=== PATIENT | female | born 1995 | race Caucasian/White ===

== ENCOUNTER 2018-07-19 11:10 | Emergency (ER) | payer OTHER ==
[~2018-07-19] VITALS: Ht 160 cm; Wt 63.7 kg
[2018-07-19 11:15] VITALS: BP 144/95
[2018-07-19] MEDS ORDERED: diphenhydrAMINE 50 MG/ML VIAL IVP ONE (11:30)
[2018-07-19] MEDS ORDERED: ONDANSETRON 4 MG/2 ML VIAL IVP ONE (11:30)
[2018-07-19] MEDS ORDERED: NACL 0.9% 1,000 ML IV ONE ×2 (11:30→13:05)
[2018-07-19 12:03] LABS: BASOPHILS % (AUTO) 0.3 % (0.0-2.0); EOSINOPHILS # (AUTO) 0.1 K/uL (0-0.4); EOSINOPHILS % (AUTO) 0.9 % (0.0-4.0); HEMATOCRIT 36.6 % (36-48); HEMOGLOBIN 11.7 g/dL (12.0-16.0); LYMPHOCYTES # (AUTO) 1.2 K/uL (2.5-16.5); LYMPHOCYTES % (AUTO) 8.7 % (20.5-51.1); MEAN CORPUSCULAR HEMOGLOBIN 27 pg (27-31); MEAN CORPUSCULAR HGB CONC 32 g/dL (33-37); MEAN CORPUSCULAR VOLUME 83.8 fL (80-94); MONOCYTES # (AUTO) 0.4 K/uL (0.8-1.0); MONOCYTES % (AUTO) 2.5 % (1.7-9.3); NEUTROPHILS # (AUTO) 12.4 K/uL (1.8-7.7); NEUTROPHILS % (AUTO) 87.6 % (42.2-75.2); PLATELET COUNT (AUTO) 264 K/uL (140-450); RED BLOOD CELL COUNT(AUTO) 4.37 MIL/uL (4.20-5.40); RED CELL DISTRIBUTION WIDTH 13.5 % (11.6-13.7); WHITE BLOOD COUNT (AUTO) 14.1 K/uL (4.5-11.0)
[2018-07-19 12:59] LABS: ALBUMIN 3.5 g/dL (3.4-5.0); CREATININE 0.7 mg/dL (0.6-1.3); TOTAL BILIRUBIN 0.2 mg/dL (0.0-1.0)
[2018-07-19] MEDS ORDERED: HALOPERIDOL IM 5 MG/ML VIAL IVP ONE (13:05)
[2018-07-19] MEDS ORDERED: CAPSAICIN 0.025% CRE 60 GM TUBE TP SCH ×2 (13:10→13:32)
[2018-07-19 14:48] VITALS: BP 122/72
== END 2018-07-19 14:47 | disposition home or self-care (01) ==
LOC: MED 11:10
DX: K31.84 Gastroparesis (principal); Z88.2 Allergy status to sulfonamides; Z88.8 Allergy status to other drugs, medicaments and biological substances; K21.9 Gastro-esophageal reflux disease without esophagitis; Z98.890 Other specified postprocedural states; F12.90 Cannabis use, unspecified, uncomplicated
CPT/HCPCS: 36415; 76705; 80053; 81002; 81025; 83690; 84702; 85025; 96361; 96374; 96375; 99284; J1200; J1630; J2405; J7030; Q0092; 99285

== ENCOUNTER 2018-07-23 02:17 | Emergency (ER) | payer OTHER ==
[~2018-07-23] VITALS: Ht 157.5 cm; Wt 65.8 kg
[2018-07-23 02:22] VITALS: BP 142/91
--- NOTE | 2018-07-23 02:22 | NUR ---
BIB EMS, pt presents to ED with epigastric abd pain 10/10 with n/v x10 days. Pt has hx of GERD, Gastritis, and Diverticulits. Pt seen x2 days at [facility]. Pt without relief at this time. VSS. ER MD aware. Positioned in bed for comfort. Continue to monitor.
--- NOTE | 2018-07-23 02:22 | NUR ---
Pt ambulated from [facility] to bed 3. Arrived via [facility]. VSS.
[2018-07-23] MEDS ORDERED: ONDANSETRON 4 MG/2 ML VIAL IVP ONE (02:30)
[2018-07-23] MEDS ORDERED: NACL 0.9% 1,000 ML IV ONE ×2 (02:30→02:35)
--- NOTE | 2018-07-23 02:30 | NUR ---
Patient being evaluated by physician at bedside.
[2018-07-23] MEDS ORDERED: PANTOPRAZOLE 40 MG INJ VIAL IVP ONE (02:35)
[2018-07-23] MEDS ORDERED: MORPHINE SULFATE 4 MG/ML SYR IVP ONE ×2 (02:35→05:10)
[2018-07-23 02:42] LABS: BASOPHILS # (AUTO) 0.1 K/uL (0.00-0.22); BASOPHILS % (AUTO) 0.5 % (0.0-2.0); EOSINOPHILS # (AUTO) 0.1 K/uL (0-0.4); HEMATOCRIT 35.4 % (36-48); HEMOGLOBIN 11.5 g/dL (12.0-16.0); LYMPHOCYTES # (AUTO) 3.9 K/uL (2.5-16.5); LYMPHOCYTES % (AUTO) 30.9 % (20.5-51.1); MEAN CORPUSCULAR HEMOGLOBIN 27 pg (27-31); MEAN CORPUSCULAR HGB CONC 33 g/dL (33-37); MEAN CORPUSCULAR VOLUME 82.4 fL (80-94); MONOCYTES # (AUTO) 1.4 K/uL (0.8-1.0); MONOCYTES % (AUTO) 11.2 % (1.7-9.3); NEUTROPHILS # (AUTO) 7.2 K/uL (1.8-7.7); NEUTROPHILS % (AUTO) 56.4 % (42.2-75.2); PLATELET COUNT (AUTO) 326 K/uL (140-450); RED BLOOD CELL COUNT(AUTO) 4.29 MIL/uL (4.20-5.40); RED CELL DISTRIBUTION WIDTH 13.6 % (11.6-13.7); WHITE BLOOD COUNT (AUTO) 12.7 K/uL (4.5-11.0)
[2018-07-23 03:07] LABS: ANION GAP 14.1 (8-16); CARBON DIOXIDE 27.2 mmol/L (21-32); POTASSIUM 3.3 mmol/L (3.5-5.1)
[2018-07-23 03:08] LABS: ALBUMIN 3.8 g/dL (3.4-5.0); CREATININE 0.8 mg/dL (0.6-1.3); TOTAL BILIRUBIN 0.5 mg/dL (0.0-1.0)
--- NOTE | 2018-07-23 04:13 | NUR ---
PT IN BED RESTING WITH EYES CLOSED. VSS. CONTINUE TO MONITOR.
[2018-07-23] MEDS ORDERED: POTASSIUM CHLORIDE 10 MEQ TABER PO ONE (04:30)
[2018-07-23] MEDS ORDERED: SIMETHICONE 40 MG/0.6 ML PO ONE (04:30)
[2018-07-23 05:32] VITALS: BP 132/76
== END 2018-07-23 05:32 | disposition home or self-care (01) ==
LOC: MED 02:17
DX: R11.2 Nausea with vomiting, unspecified (principal); R10.13 Epigastric pain; K21.9 Gastro-esophageal reflux disease without esophagitis; Z88.2 Allergy status to sulfonamides; Z88.8 Allergy status to other drugs, medicaments and biological substances
CPT/HCPCS: 36415; 80053; 83690; 85025; 96361; 96374; 96375; 96376; 99283; C9113; J2270; J2405; J7030

== ENCOUNTER 2018-07-24 07:06 | Inpatient (IN) | payer OTHER ==
[~2018-07-24] VITALS: Ht 157.5 cm; Wt 65.3 kg
[2018-07-24 07:06] VITALS: BP 144/85
--- NOTE | 2018-07-24 07:06 | NUR ---
Patient BIBA BLS, transferred to bed 11. RN evaluating patient at bedside.
--- NOTE | 2018-07-24 07:18 | NUR ---
BIBA FROM HOME WITH C/O ABD PAIN , N/V FOR 12 DAYS, SEEN BY KANDI YESTERDAY. DENIES OTHER SYMPTOMS AT THIS TIME. PAIN 04/21. SKIN IS PINK/WARM/DRY; AAOX4 WITH EVEN AND STEADY GAIT; LUNGS CLEAR BL; HR EVEN AND REGULAR; PT DENIES ANY FEVER, CP, SOB, OR COUGH AT THIS TIME; VSS; PATIENT POSITIONED FOR COMFORT; HOB ELEVATED; BEDRAILS UP X2; BED DOWN. ER MD MADE AWARE OF PT STATUS.
[2018-07-24] MEDS ORDERED: NACL 0.9% 1,000 ML IV SCH (07:23)
[2018-07-24] MEDS ORDERED: HALOPERIDOL IM 5 MG/ML VIAL IM ONE (07:25)
[2018-07-24] MEDS ORDERED: PANTOPRAZOLE 40 MG INJ VIAL IVP ONE (07:45)
[2018-07-24] MEDS ORDERED: PROMETHAZINE 25 MG/ML VIAL IM ONE (07:45)
[2018-07-24 07:53] LABS: BASOPHILS # (AUTO) 0.1 K/uL (0.00-0.22); BASOPHILS % (AUTO) 0.3 % (0.0-2.0); EOSINOPHILS # (AUTO) 0.2 K/uL (0-0.4); EOSINOPHILS % (AUTO) 0.7 % (0.0-4.0); HEMOGLOBIN 11.7 g/dL (12.0-16.0); LYMPHOCYTES # (AUTO) 1.5 K/uL (2.5-16.5); LYMPHOCYTES % (AUTO) 7.2 % (20.5-51.1); MEAN CORPUSCULAR HEMOGLOBIN 27 pg (27-31); MEAN CORPUSCULAR HGB CONC 33 g/dL (33-37); MEAN CORPUSCULAR VOLUME 82.7 fL (80-94); MONOCYTES # (AUTO) 1.4 K/uL (0.8-1.0); NEUTROPHILS # (AUTO) 17.3 K/uL (1.8-7.7); NEUTROPHILS % (AUTO) 84.8 % (42.2-75.2); PLATELET COUNT (AUTO) 312 K/uL (140-450); RED BLOOD CELL COUNT(AUTO) 4.35 MIL/uL (4.20-5.40); RED CELL DISTRIBUTION WIDTH 13.9 % (11.6-13.7); WHITE BLOOD COUNT (AUTO) 20.5 K/uL (4.5-11.0)
[2018-07-24 08:23] LABS: ALBUMIN 3.8 g/dL (3.4-5.0); ANION GAP 16.1 (8-16); CREATININE 0.7 mg/dL (0.6-1.3); POTASSIUM 3.1 mmol/L (3.5-5.1); TOTAL BILIRUBIN 0.4 mg/dL (0.0-1.0)
--- NOTE | 2018-07-24 08:45 | NUR ---
DR COOK AT BEDSIDE.
[2018-07-24] MEDS ORDERED: CAPSAICIN 0.025% CRE 60 GM TUBE TP SCH (09:10)
[2018-07-24 09:24] LABS: APPEARANCE,URINE CLEAR (CLEAR); BILIRUBIN,URINE NEGATIVE (NEGATIVE); BLOOD, URINE 1+ (NEGATIVE); COLOR,URINE YELLOW (YELLOW); LEUKOCYTE ESTERASE ,URINE NEGATIVE (NEGATIVE); NITRITE, URINE NEGATIVE (NEGATIVE); UGLUCOSE NEGATIVE (NEGATIVE)
--- NOTE | 2018-07-24 09:30 | NUR ---
TAKEN TO CT IN [facility].
--- NOTE | 2018-07-24 09:43 | NUR ---
Patient back from CT scan at this time.
[2018-07-24 09:47] LABS: RBC,URINE 0-5 (RARE) /HPF (0-5); WBC,URINE 0-5 (RARE) /HPF (0-5)
[2018-07-24] MEDS ORDERED: metroNIDAZOLE 500 MG/NS PREMIX 100 ML IV ONE (10:35)
--- NOTE | 2018-07-24 11:12 | NUR ---
PATIENT STATES 10/ PAIN, DR COOK INFORMED.
--- NOTE | 2018-07-24 11:45 | NUR ---
Patient will be admitted to care of DR GALVAN. Admited to MED SURG. Will go to room 106-A. Belongings list completed. Report to RN. PATIENT STABLE DURING TRANSPORT.
[2018-07-24 11:50] VITALS: BP 128/80
--- NOTE | 2018-07-24 11:50 | NUR ---
RECEIVED BEDSIDE REPORT FROM ED NURSE. PT ARRIVED IN THE UNIT BY WHEELCHAIR. PT AMBULATED FROM THE DOOR TO THE BED WITH STEADY GAIT. PT STABLE, AWAKE, AND ALERT. NO SIGNS OF DISTRESS NOTED. NO ACTIVE VOMITING OR NAUSEA. ORIENTED TO ROOM. CALL ANDRE WITHIN REACH. BED IN LOW POSITION. SAFETY MEASURES IN PLACE. PLAN OF CARE REVIEWED. WILL CONTINUE TO MONITOR.
[2018-07-24 11:54] LABS: BARBITURATE, URINE NEG. ng/ml (NEG <=200); BENZODIAZEPINE, URINE NEG. ng/mL (NEG <=200); CANNABINOID, URINE POS. ng/mL (NEG <=50); COCAINE, URINE NEG. ng/mL (NEG <=300); OPIATE, URINE POS. ng/mL (NEG <=2000); PHENCYCLIDINE SCREEN,URINE NEG. ng/mL (NEG <=25)
[2018-07-24] MEDS ORDERED: LEVOFLOXACIN 500 MG/D5W PREMIX 100 ML IV SCH (12:00)
[2018-07-24] MEDS: ACETAMINOPHEN 325 MG TAB PO PRN ×2 (12:35→17:33)
[2018-07-24] MEDS: LORazepam 2 MG/ML VIAL IVP PRN ×2 (12:36→23:59)
--- NOTE | 2018-07-24 12:40 | NUR ---
PT COMPLAINED OF ABD PAIN. PT CRYING, MOANING, AND RESTLESS FROM PAIN. ADMINISTERED PRN TYLENOL AND ATIVAN PER MD ORDER. PT TOLERATED WELL.
[2018-07-24] MEDS: LACTATED RINGERS 1,000 ML IV SCH ×2 (13:06→21:45)
[2018-07-24 16:00] VITALS: BP 129/59
[2018-07-24] MEDS: ONDANSETRON 4 MG/2 ML VIAL IVP PRN (17:33)
--- NOTE | 2018-07-24 17:44 | NUR ---
PT IN SEVER ABD PAIN, HOLDING ABD, CRYING, ACTIVELY VOMITING, REFUSES TYLENOL, ZOFRAN GIVEN, WILL NOTIFY .
[2018-07-24] MEDS ORDERED: MORPHINE SULFATE 4 MG/ML SYR IVP PRN (17:45)
[2018-07-24] MEDS ORDERED: MORPHINE SULFATE 4 MG/ML SYR ONE (17:58)
[2018-07-24] MEDS: metroNIDAZOLE 500 MG/NS PREMIX 100 ML IV SCH (19:12)
--- NOTE | 2018-07-24 19:30 | NUR ---
ENDORSED PT TO KEENAN MYLES. PT SLEEPING COMFORTABLY BUT EASILY AROUSABLE.
--- NOTE | 2018-07-24 19:30 | NUR ---
RECEIVED REPORT FROM IDA RN AND DIGNA RN DAYSHIFT NURSES, AT BEDSIDE FOR CONTINUITY OF CARE, PT SLEEPING AND IN STABLE CONDITION.
--- NOTE | 2018-07-24 19:50 | NUR ---
PT LYING IN BED WITH EYES CLOSED, AOX4. PT RUNNING LACTATED RINGERS AT 100MLS VIA RAC 22G. V/S FOLLOWS 98.1 P 82 R 18 B/P 140/84 02 98% ON R/A.
[2018-07-24 20:00] VITALS: BP 119/73
--- NOTE | 2018-07-24 20:24 | NUR ---
[facility]ED [facility] AWAITING CALL FROM COMMERCIAL DECORATOR MD DR. GOODWIN REGARDING PT LOW POTASSIUM LEVEL AND HER REQUEST FOR INCREASED PAIN MEDICATION.
--- NOTE | 2018-07-24 21:30 | NUR ---
RECEIVED RETURN PHONE CALL FROM DR. GOODWIN 2 NEW ORDERS NOTED, 40 MEQ OF K-DUR PO X1 AND DR. GOODWIN CHANGED MORPHINE ORDER FROM 2MG Q 6HRS TO 2MG Q4HRS. NEW ORDERS NOTED.
--- NOTE | 2018-07-24 22:00 | NUR ---
PT IN BED RESTING WITH EYES CLOSED, PT INFORMED THAT PMO BUSINESS ANALYST DR. GOODWIN CHANGED PRN MORPHINE ORDER FROM Q6 TO Q4HRS. PT SAID THAT SHE IS OK RIGHT NOW. WILL CONTINUE TO MONITOR PT FOR S/S OF PAIN AND VOMITING.
[2018-07-24] MEDS ORDERED: POTASSIUM CHLORIDE 10 MEQ TABER PO ONE (22:55)
--- NOTE | 2018-07-24 23:15 | NUR ---
PT REPORTED HAVING A SMALL AMOUNT OF VOMIT/REGURGITATION.
--- NOTE | 2018-07-24 23:30 | NUR ---
PT CRYING IN PAIN AND SHE REPORTED SEVERE PAIN 02/19. PT GIVEN PRN MORPHINE IVP 2MG ORDERED.
[2018-07-24] MEDS: MORPHINE SULFATE 4 MG/ML SYR IVP PRN (23:39)
[2018-07-25] VITALS: BP 120/76
--- NOTE | 2018-07-25 | NUR ---
PT C/O OF ANXIETY, WAS GIVEN ATIVAN IVP ORDERED.
--- NOTE | 2018-07-25 01:30 | NUR ---
PT IN BED RESTING WITH EYES CLOSED, NO C/O VOICED AT THIS TIME. V/S FOLLOWS T 97.8 P 74 R 18 B/P 119/75 02 97% WITH R/A. LACTATED RINGS RUNNING AT 100 MLS/HR VIA RAC NO S/S OF INFILTRATION NOTED.
--- NOTE | 2018-07-25 04:30 | NUR ---
PT C/O SEVER PAIN IN ABDOMEN PT CRYING AND SHE VOMITED 100MLS OF EMESIS. PT GIVEN MORPHINE IVP ORDERED. WILL MONITOR FOR EFFECT..
[2018-07-25] MEDS: MORPHINE SULFATE 4 MG/ML SYR IVP PRN ×2 (04:48→08:50)
[2018-07-25] MEDS: metroNIDAZOLE 500 MG/NS PREMIX 100 ML IV SCH ×3 (05:04→18:33)
[2018-07-25 06:39] LABS: BASOPHILS % (AUTO) 0.3 % (0.0-2.0); EOSINOPHILS # (AUTO) 0.2 K/uL (0-0.4); EOSINOPHILS % (AUTO) 1.5 % (0.0-4.0); HEMATOCRIT 37.9 % (36-48); HEMOGLOBIN 12.2 g/dL (12.0-16.0); LYMPHOCYTES # (AUTO) 2.3 K/uL (2.5-16.5); LYMPHOCYTES % (AUTO) 18.8 % (20.5-51.1); MEAN CORPUSCULAR HEMOGLOBIN 27 pg (27-31); MEAN CORPUSCULAR HGB CONC 32 g/dL (33-37); MEAN CORPUSCULAR VOLUME 82.9 fL (80-94); MONOCYTES # (AUTO) 1.2 K/uL (0.8-1.0); MONOCYTES % (AUTO) 9.6 % (1.7-9.3); NEUTROPHILS # (AUTO) 8.7 K/uL (1.8-7.7); NEUTROPHILS % (AUTO) 69.8 % (42.2-75.2); PLATELET COUNT (AUTO) 293 K/uL (140-450); RED BLOOD CELL COUNT(AUTO) 4.57 MIL/uL (4.20-5.40); RED CELL DISTRIBUTION WIDTH 13.8 % (11.6-13.7); WHITE BLOOD COUNT (AUTO) 12.4 K/uL (4.5-11.0)
--- NOTE | 2018-07-25 07:20 | NUR ---
REPORT GIVEN TO DOUG HUSSEIN DAYSHIFT NURSE AT BEDSIDE, PT ASLEEP PEACEFULLY IV SITE INTACT AND RUNNING LACTATED RINGERS AT 100 MLS/HR.
--- NOTE | 2018-07-25 07:28 | NUR ---
RECEIVED BEDSIDE REPORT FROM PROGRAM CHECKER RN. PT SLEEPING IN BED, AROUSABLE BY VOICE, BUT DROWSY. NO S/S DISTRESS. RESPIRATIONS EVEN AND UNLABORED. HEART RHYTHM REGULAR. BS ACTIVE IN ALL QUADRANTS. PT DENIES NAUSEA AND VOMITING. NO C/O PAIN AT THIS TIME. IV SITE PATENT AND ASYMPTOMATIC, INFUSING IVF PER MD ORDERS. SKIN INTACT. PT IS AMBULATORY WITHOUT ASSIST. ALL SAFETY PRECAUTIONS IN PLACE, WILL CONTINUE TO MONITOR.
[2018-07-25] MEDS: LACTATED RINGERS 1,000 ML IV SCH ×2 (07:45→08:51)
[2018-07-25 08:00] VITALS: BP 140/101
[2018-07-25] MEDS: LORazepam 2 MG/ML VIAL IVP PRN ×3 (08:50→22:34)
--- NOTE | 2018-07-25 08:50 | NUR ---
PT RESTLESS AND C/O ANXIETY. ADMINISTERED ATIVAN IVP PER MD ORDERS.
--- NOTE | 2018-07-25 09:50 | NUR ---
PT SLEEPING IN BED, AROUSABLE BY VOICE. NO C/O PAIN OR ANXIETY AT THIS TIME, ONE HOUR AFTER ATIVAN IVP.
[2018-07-25] MEDS: METOCLOPRAMIDE 10 MG/2 ML INJ VIAL IVP SCH ×2 (11:27→18:33)
--- NOTE | 2018-07-25 14:11 | NUR ---
PT SLEEPING IN BED, RESPIRATIONS EVEN AND UNLABORED. NO S/S DISTRESS. ALL SAFETY PRECAUTIONS IN PLACE, WILL CONTINUE TO MONITOR.
[2018-07-25 16:00] VITALS: BP 125/74
[2018-07-25] MEDS ORDERED: KETOROLAC 15 MG/ML VIAL IVP PRN (16:10)
[2018-07-25] MEDS: KETOROLAC 15 MG/ML VIAL IVP PRN ×2 (16:27→22:37)
--- NOTE | 2018-07-25 16:48 | NUR ---
PT C/O ANXIETY. ADMINISTERED ATIVAN IVP PER MD ORDERS.
--- NOTE | 2018-07-25 19:00 | NUR ---
RECEIVED ENDORSEMENT FROM DOUG HUSSEIN DAYSHIFT NURSE AT BEDSIDE FOR CONTINUITY OF CARE, PT IN STABLE CONDITION.
--- NOTE | 2018-07-25 20:00 | NUR ---
PT IN BED SLEEPING, BUT AROUSABLE TO NAME. PT HAD DINER TRAY AT BEDSIDE UNTOUCHED. PT C/O FEELING A LITTLE HUNGRY, SHE WAS GIVEN 1 CUP OF HOT CHICKEN BROTH AND JUICE. PT V/S FOLLOWS T 97.4 P 91 R 18 B/P 140/84 02 97% ON R/A.
[2018-07-25] MEDS: PANTOPRAZOLE 40 MG INJ VIAL IVP SCH (21:00)
[2018-07-25] MEDS: ACETAMINOPHEN 325 MG TAB PO PRN (21:51)
--- NOTE | 2018-07-25 22:00 | NUR ---
PT C/O OF PAIN AND WAS EXPLAINED THAT SHE WAS NOT DUE FOR HER MEDICATION AT THIS TIME. SHE WAS GIVEN 650MG TYLENOL PO AND AFTERWARDS, HAD 1 EPISODE OF PROJECTILE VOMITING OF 400MLS. PT GIVEN DUE PROTONIX 40MG IVP. WILL CONTINUE TO MONITOR PT FOR PAIN AND VOMITING.
--- NOTE | 2018-07-25 22:40 | NUR ---
PT C/O OF BEING IN PAIN AND FEELING ANXIOUS PT MOANING AND RESTLESS. SHE WAS GIVEN TORADOL 15MG IVP AND ATIVAN IVP/PRN ORDERED. WILL MONITOR EFFECT.
[2018-07-26] MEDS: METOCLOPRAMIDE 10 MG/2 ML INJ VIAL IVP SCH ×2 (00:29→06:14)
--- NOTE | 2018-07-26 00:36 | NUR ---
PT IN BED SLEEPING SOUNDLY WITH NO S/S OF PAIN OR DISTRESS NOTED. V/S FOLLOWS T 97.6 P 79 R 18 B/P 125/75 02 97% ON R/A. PT GIVEN DUE REGLAN 5MG /1ML IVP.
--- NOTE | 2018-07-26 02:19 | NUR ---
CALLED [facility], DR. OCONNELL ON CALLED. AWAITING CALL BACK REGARDING PAIN MEDICATION. PT C/O THAT PAIN MEDICATION IS NOT LASTING A FULL 6HRS. PT REQUESTING IF SHE CAN HAVE PAIN MEDICATION Q 4HRS PRN INSTEAD OF Q6HRS.
[2018-07-26] MEDS ORDERED: KETOROLAC 15 MG/ML VIAL IVP PRN (02:20)
--- NOTE | 2018-07-26 02:21 | NUR ---
DR. OCONNELL CALLED BACK WITH OK TO CHANGE PRN PAIN MEDICATION FROM TORADOL 15MG Q 6HRS TO 15MG Q 4 HRS.
[2018-07-26] MEDS: metroNIDAZOLE 500 MG/NS PREMIX 100 ML IV SCH (03:46)
[2018-07-26 04:16] VITALS: BP 125/75
[2018-07-26] MEDS: LACTATED RINGERS 1,000 ML IV SCH ×2 (04:20→09:00)
--- NOTE | 2018-07-26 06:10 | NUR ---
PT C/O SEVERE ABD PAIN AND ANXIETY AND RESTLESSNESS, GIVEN TORADOL AND ATIVAN IVP /PRN. WILL CONTINUE TO MONITOR FOR EFFECT.
[2018-07-26] MEDS: LORazepam 2 MG/ML VIAL IVP PRN (06:13)
[2018-07-26 06:20] LABS: BASOPHILS # (AUTO) 0.1 K/uL (0.00-0.22); BASOPHILS % (AUTO) 0.5 % (0.0-2.0); EOSINOPHILS # (AUTO) 0.2 K/uL (0-0.4); EOSINOPHILS % (AUTO) 2.1 % (0.0-4.0); HEMATOCRIT 35.4 % (36-48); HEMOGLOBIN 11.6 g/dL (12.0-16.0); LYMPHOCYTES # (AUTO) 2.9 K/uL (2.5-16.5); LYMPHOCYTES % (AUTO) 27.6 % (20.5-51.1); MEAN CORPUSCULAR HEMOGLOBIN 27 pg (27-31); MEAN CORPUSCULAR HGB CONC 33 g/dL (33-37); MEAN CORPUSCULAR VOLUME 83.4 fL (80-94); NEUTROPHILS # (AUTO) 6.3 K/uL (1.8-7.7); NEUTROPHILS % (AUTO) 59.8 % (42.2-75.2); PLATELET COUNT (AUTO) 300 K/uL (140-450); RED BLOOD CELL COUNT(AUTO) 4.25 MIL/uL (4.20-5.40); RED CELL DISTRIBUTION WIDTH 13.8 % (11.6-13.7); WHITE BLOOD COUNT (AUTO) 10.5 K/uL (4.5-11.0)
--- NOTE | 2018-07-26 06:50 | NUR ---
PT CYING AND MOANING SHE DOESNT FEEL GOD. PT WAS EXPLAINED THAT SHE ALREDY HAD HER PAIN MEDICATION AT THIS TIME, WILL ENDORSE TO AM NURSE TO FOLLOW UP WITH MD REGARDING PAIN MEDICATION NECCESSARY.
[2018-07-26 07:31] LABS: ANION GAP 12.8 (8-16); CARBON DIOXIDE 28.6 mmol/L (21-32); CREATININE 0.7 mg/dL (0.6-1.3); POTASSIUM 3.4 mmol/L (3.5-5.1)
--- NOTE | 2018-07-26 07:35 | NUR ---
REPORT GIVEN TO JEROD RN DAYSHIFT NURSE AT BEDSIDE FOR CONTINUITY OF CARE, PT IN STABLE CONDITION. PT MOANING AND C/O OF NAUSEA. AM NURSE SAID SHE WILL BRING PRN ZOFRAN.
--- NOTE | 2018-07-26 07:36 | NUR ---
RECEIVED REPORT FROM NETTING WEAVER NURSE. PT IN STABLE CONDITION. RESPIRATIONS EVEN AND UNLABORED. IV INTACT AND PATENT. SAFETY MEASURES IN PLACE. CALL LIGHT AT BEDSIDE. BED IN LOW POSITION. WILL CONTINUE TO MONITOR.
--- NOTE | 2018-07-26 07:53 | NUR ---
PATIENT HAS BEEN SCREENED AND CATEGORIZED HIGH NUTRITION RISK. PATIENT WILL BE SEEN WITHIN 1-2 DAYS OF ADMISSION. 07/26/[address]
[2018-07-26] MEDS: ONDANSETRON 4 MG/2 ML VIAL IVP PRN (08:03)
[2018-07-26] MEDS: PANTOPRAZOLE 40 MG INJ VIAL IVP SCH (09:00)
--- NOTE | 2018-07-26 09:00 | NUR ---
GAVE ORDERED DUE MEDICATIONS. PT TOLERATED WELL. WILL CONTINUE TO MONITOR.
[2018-07-26] MEDS ORDERED: KCL 20 MEQ/WATER INJ PREMIX 100 ML IV SCH (10:00)
--- NOTE | 2018-07-26 10:15 | NUR ---
PT ESCORTED TO SHOWER. PT TOLERATED WELL. WILL CONTINUE TO MONITOR.
--- NOTE | 2018-07-26 11:10 | NUR ---
PT SIGNED AMA AT THIS TIME. PT IN STABLE CONDITION. PT REFUSED WHEELCHAIR. PT WALKED TO LOBBY IN STABLE CONDITION.
--- NOTE | 2018-07-26 14:06 | NUR ---
Called pt and informed her she has an out patient follow up with her PCP Dr. Bob Duran on 07/29/18 at 1400. Clinic address [address] [place] [address]. [place] [phone]. [facility] # .
== END 2018-07-26 11:10 | disposition left against medical advice (07) | DRG 249 ==
LOC: MED 07:06 → MTU 11:40
PROVIDERS: ADMIT Internal Medicine; ATTEND Internal Medicine
DX: K52.9 Noninfective gastroenteritis and colitis, unspecified (principal); R65.10 Systemic inflammatory response syndrome (SIRS) of non-infectious origin without acute organ dysfunction; K58.0 Irritable bowel syndrome with diarrhea; D72.829 Elevated white blood cell count, unspecified; K29.70 Gastritis, unspecified, without bleeding; K21.9 Gastro-esophageal reflux disease without esophagitis; E87.6 Hypokalemia; F12.188 Cannabis abuse with other cannabis-induced disorder; Z53.21 Procedure and treatment not carried out due to patient leaving prior to being seen by health care provider; Z88.2 Allergy status to sulfonamides; Z88.8 Allergy status to other drugs, medicaments and biological substances
CPT/HCPCS: 36415; 80048; 80053; 80305; 81001; 81025; 83690; 83735; 84703; 85025; 87081; 96361; 96365; 96372; 96375; 99285; C9113; J1630; J1885; J1956; J2060; J2270; J2405; J2550; J2765; J3490; J7120

== ENCOUNTER 2018-07-29 12:04 | Emergency (ER) | payer OTHER ==
[~2018-07-29] VITALS: Ht 160 cm; Wt 63.5 kg
[2018-07-29 12:07] VITALS: BP 168/116
--- NOTE | 2018-07-29 12:17 | NUR ---
BIBA FOR VOMITING AND PAIN. [place] WAS RECENTLY DC FROM THE HOSPITAL. SKIN IS PINK/WARM/DRY; AAOX4 WITH EVEN AND STEADY GAIT; LUNGS CLEAR BL; HR EVEN AND REGULAR; PT DENIES ANY FEVER, CP, SOB, OR COUGH AT THIS TIME; PATIENT STATES PAIN OF 7/10 AT THIS TIME; VSS; PATIENT POSITIONED FOR COMFORT; HOB ELEVATED; BEDRAILS UP X2; BED DOWN. ER MD MADE AWARE OF PT STATUS.
[2018-07-29] MEDS ORDERED: diphenhydrAMINE 50 MG/ML VIAL IM ONE (12:25)
[2018-07-29] MEDS ORDERED: HALOPERIDOL IM 5 MG/ML VIAL IM ONE (12:25)
[2018-07-29] MEDS ORDERED: NACL 0.9% 1,000 ML IV ONE (12:27)
[2018-07-29] MEDS ORDERED: NACL 0.9% 2,000 ML IV SCH (12:27)
[2018-07-29] MEDS ORDERED: PROMETHAZINE 25 MG/ML VIAL IM ONE (12:30)
[2018-07-29] MEDS ORDERED: MORPHINE SULFATE 4 MG/ML SYR IVP ONE (12:30)
[2018-07-29] MEDS ORDERED: KETOROLAC 30 MG/ML VIAL IVP ONE (12:30)
[2018-07-29 13:51] LABS: ANION GAP 13.5 (8-16); CARBON DIOXIDE 25.6 mmol/L (21-32); CREATININE 0.8 mg/dL (0.6-1.3); POTASSIUM 4.1 mmol/L (3.5-5.1)
[2018-07-29 13:57] LABS: ALBUMIN 3.9 g/dL (3.4-5.0); TOTAL BILIRUBIN 0.2 mg/dL (0.0-1.0)
[2018-07-29 13:59] LABS: PROTHROMBIN TIME 9.3 secs (10.8-13.4)
[2018-07-29 14:42] LABS: HEMATOCRIT 39.8 % (36-48); HEMOGLOBIN 12.8 g/dL (12.0-16.0); MEAN CORPUSCULAR HEMOGLOBIN 27 pg (27-31); MEAN CORPUSCULAR HGB CONC 32 g/dL (33-37); MEAN CORPUSCULAR VOLUME 83.8 fL (80-94); PLATELET COUNT (AUTO) 292 K/uL (140-450); RED BLOOD CELL COUNT(AUTO) 4.74 MIL/uL (4.20-5.40); WHITE BLOOD COUNT (AUTO) 15.3 K/uL (4.5-11.0)
[2018-07-29 14:56] LABS: ACETAMINOPHEN < 0.5 ug/ml (10-30); AMYLASE 121 U/L (25-115); LIPASE 169 U/L (73-393); SALICYLATE < 2.8 mg/dL (2.8-20.0)
--- NOTE | 2018-07-29 15:00 | NUR ---
PT AMBULATED TO BATHROOM.
[2018-07-29 15:11] LABS: EOSINOPHILS % (MANUAL) 1 % (0-4); LYMPHOCYTES % (MANUAL) 11 % (20-46); MONOCYTES % (MANUAL) 2 % (5-12)
--- NOTE | 2018-07-29 15:15 | NUR ---
URINE COLLECTED AND WALKED DOWN TO LAB.
[2018-07-29 15:31] LABS: APPEARANCE,URINE CLEAR (CLEAR); BILIRUBIN,URINE NEGATIVE (NEGATIVE); BLOOD, URINE NEGATIVE (NEGATIVE); COLOR,URINE YELLOW (YELLOW); LEUKOCYTE ESTERASE ,URINE NEGATIVE (NEGATIVE); NITRITE, URINE NEGATIVE (NEGATIVE); PH,URINE 8.5 (5.0-9.0); UGLUCOSE NEGATIVE (NEGATIVE)
[2018-07-29 15:32] VITALS: BP 168/116
--- NOTE | 2018-07-29 15:32 | NUR ---
Patient discharged with v/s stable. Written and verbal after care instructions given and explained. Patient alert, oriented and verbalized understanding of instructions. Ambulatory with steady gait. All questions addressed prior to discharge. ID band removed. Patient advised to follow up with PMD. Rx of HALOPERIDOL, CYPROHEPPTADINE HYDROCHLORIDE given. Patient educated on indication of medication including possible reaction and side effects. Opportunity to ask questions provided and answered.
[2018-07-29 15:50] LABS: BARBITURATE, URINE NEGATIVE ng/ml (NEG <=200); BENZODIAZEPINE, URINE NEGATIVE ng/mL (NEG <=200); CANNABINOID, URINE POSITIVE ng/mL (NEG <=50); COCAINE, URINE NEGATIVE ng/mL (NEG <=300); OPIATE, URINE NEGATIVE ng/mL (NEG <=2000); PHENCYCLIDINE SCREEN,URINE NEGATIVE ng/mL (NEG <=25)
[2018-08-02] MEDS ORDERED: ONDA4SOL8 PO (20:11)
== END 2018-07-29 15:32 | disposition home or self-care (01) ==
LOC: MED 12:04
DX: F12.188 Cannabis abuse with other cannabis-induced disorder (principal); G43.A0 Cyclical vomiting, in migraine, not intractable; J45.909 Unspecified asthma, uncomplicated; K21.9 Gastro-esophageal reflux disease without esophagitis; Z88.2 Allergy status to sulfonamides; Z88.8 Allergy status to other drugs, medicaments and biological substances
CPT/HCPCS: 36415; 80053; 80305; 81003; 82150; 82550; 83605; 83690; 83880; 84484; 84703; 85025; 85610; 85730; 93005; 96372; 96374; 96375; 99284; G0480; G0482; J1200; J1630; J1885; J2270; J2550; J7030; 99283

== ENCOUNTER 2018-07-31 09:50 | Inpatient (IN) | payer OTHER ==
[~2018-07-31] VITALS: Ht 157.5 cm; Wt 66.2 kg
[2018-07-31 10:00] VITALS: BP 137/97
--- NOTE | 2018-07-31 10:00 | NUR ---
PT AMBULATES TO BED 4
[2018-07-31] MEDS ORDERED: KETOROLAC 30 MG/ML VIAL IVP ONE (10:05)
[2018-07-31] MEDS ORDERED: NACL 0.9% 2,000 ML IV ONE (10:05)
[2018-07-31] MEDS ORDERED: ONDANSETRON 4 MG/2 ML VIAL IVP ONE (10:05)
--- NOTE | 2018-07-31 10:20 | NUR ---
Patient being evaluated by physician at bedside.
--- NOTE | 2018-07-31 10:20 | NUR ---
22/F BIB PARENT, C/O UPPER MEDIAL ABDOMINAL PAIN X3 WEEKS. PAIN IS CONSTANT PRESSURE/ DULL 10/10. PAIN RADIATES TO THE REST OF HER ABDOMINAL CAVITY, STATES PAIN IS MORE OF A BURNING SENSTATION, 10/10. PATIENT REPORTS FEELING SOME RELIEF WITH PRESSURE AND HEAT. PATIENT N/V, VOMITING +10/ DAY. DENIES DIARRHEA. HX OF HIATAL HERNIA, IBS, GASTRITIS, ACID REFLUX, GERD. PATIENT LUNG SOUNDS CLEAR, EVEN AND STATES ITS DIFFICULT TO BREATH WITH THE PAIN BUT DENIES SOB OR PAIN. HX OF ASTHMA. AOX4, CLEAR SPEECH, STEADY GAIT, SAFETY PRECAUITIONS IN PLACE.
--- NOTE | 2018-07-31 10:34 | NUR ---
BLANCA FOLEY TAKING PATIENT TO CT, VIA MIKE.
--- NOTE | 2018-07-31 10:42 | NUR ---
PT RETURNED FROM CT
[2018-07-31 10:49] LABS: BASOPHILS # (AUTO) 0.1 K/uL (0.00-0.22); BASOPHILS % (AUTO) 0.6 % (0.0-2.0); EOSINOPHILS # (AUTO) 0.1 K/uL (0-0.4); EOSINOPHILS % (AUTO) 0.9 % (0.0-4.0); HEMATOCRIT 37.3 % (36-48); HEMOGLOBIN 11.8 g/dL (12.0-16.0); LYMPHOCYTES # (AUTO) 1.5 K/uL (2.5-16.5); MEAN CORPUSCULAR HEMOGLOBIN 26 pg (27-31); MEAN CORPUSCULAR HGB CONC 32 g/dL (33-37); MEAN CORPUSCULAR VOLUME 83.7 fL (80-94); MONOCYTES # (AUTO) 0.7 K/uL (0.8-1.0); MONOCYTES % (AUTO) 4.1 % (1.7-9.3); NEUTROPHILS # (AUTO) 14.5 K/uL (1.8-7.7); PLATELET COUNT (AUTO) 320 K/uL (140-450); RED BLOOD CELL COUNT(AUTO) 4.46 MIL/uL (4.20-5.40); RED CELL DISTRIBUTION WIDTH 14.2 % (11.6-13.7); WHITE BLOOD COUNT (AUTO) 16.9 K/uL (4.5-11.0)
[2018-07-31] MEDS ORDERED: fentaNYL 0.05 MG/ML VIAL IVP ONE (11:05)
[2018-07-31] MEDS ORDERED: LORazepam 2 MG/ML VIAL IVP ONE (11:05)
[2018-07-31 11:10] LABS: ANION GAP 10.4 (8-16); CARBON DIOXIDE 25.3 mmol/L (21-32); CREATININE 0.8 mg/dL (0.6-1.3); POTASSIUM 3.7 mmol/L (3.5-5.1)
[2018-07-31 11:13] LABS: LYMPHOCYTES % (AUTO) 8.9 % (20.5-51.1); NEUTROPHILS % (AUTO) 85.5 % (42.2-75.2)
[2018-07-31 11:17] LABS: TOTAL BILIRUBIN 0.4 mg/dL (0.0-1.0)
[2018-07-31] MEDS ORDERED: ACETAMINOPHEN 325 MG TAB PO PRN (12:15)
[2018-07-31 12:34] LABS: BARBITURATE, URINE NEG. ng/ml (NEG <=200); BENZODIAZEPINE, URINE NEG. ng/mL (NEG <=200); CANNABINOID, URINE POS. ng/mL (NEG <=50); COCAINE, URINE NEG. ng/mL (NEG <=300); OPIATE, URINE NEG. ng/mL (NEG <=2000); PHENCYCLIDINE SCREEN,URINE NEG. ng/mL (NEG <=25)
--- NOTE | 2018-07-31 12:58 | NUR ---
PT TAKEN TO TELE FLOOR BY KEENAN REYNA AND JAMEL HOWELL
--- NOTE | 2018-07-31 13:05 | NUR ---
Pt report given to HAM HUSSEIN. Transfer of care at this time.
[2018-07-31 13:15] VITALS: BP 136/94
--- NOTE | 2018-07-31 13:15 | NUR ---
Admitted from ED, with chief complaint of UPPER ABDOMINAL PAIN AND VOMITING. PT AAOX4. NO SOB NOTED. NO C/O PAIN AT THIS TIME. IV TO RT AC PATENT AND INTACT. CHEST CLEAR. ABDOMEN SOFT, BOWEL SOUNDS PRESENT. NO EDEMA NOTED. PT IS A 22 y/o ,Female, Cooperative,oriented to call light, bed, phone,television, bathroom, smoking policy,visiting hours, procedures, ID bracelet on. Belongings list checked. INSTRUCTED PT TO CALL FOR ASSISTANCE, CALL LIGHT WITHIN REACH, PT VERBALIZED UNDERSTANDING.
[2018-07-31] MEDS: DEXT 5% / NACL 0.45% 1,000 ML IV SCH (13:57)
[2018-07-31] MEDS: ONDANSETRON 4 MG/2 ML VIAL IVP PRN (13:57)
--- NOTE | 2018-07-31 13:57 | NUR ---
NEW ADMIT. PATIENT DOES NOT HAVE ENOUGH INFORMATION IN THEIR CHART TO ACCURATELY SCREEN. PATIENT IS NUTRITION SCREEN DUE IN TWO DAYS 08/02/18. SHENG ORTEZ MBA, RD
[2018-07-31] MEDS: LORazepam 2 MG/ML VIAL IVP PRN (15:52)
--- NOTE | 2018-07-31 15:55 | NUR ---
PT ANXIOUS AND WANTS TO GET ANXIETY MEDICATION. ATIVAN IVP GIVEN PRN. WILL CONTINUE TO MONITOR.
--- NOTE | 2018-07-31 17:15 | NUR ---
CALLED DR. PARKER REGARDING PT'S REQUEST TO TALK TO HIM. DR PARKER STATED HE WILL SEE PT MARIZA. PT MADE AWARE.
--- NOTE | 2018-07-31 19:20 | NUR ---
RECEIVED REPORT FROM DAY SHIFT NURSE, HAM, AT PT BEDSIDE. PT IS ASLEEP BUT EASILY AROUSABLE. PT IS ON RA WITH RESPIRATIONS EVEN AND UNLABORED. IV ACCESS IN R AC 22G WITH IVF RUNNING PER MD ORDERS. IV IS PATENT AND INTACT. PT SKIN IS INTACT. NO C/O PAIN AT THIS TIME. BED IS LOCKED, LOW POSITION WITH SIDE RAILS UP X2. CALL LIGHT IS WITHIN REACH. WILL CONTINUE TO MONITOR.
--- NOTE | 2018-07-31 19:20 | NUR ---
PT RESTING. NO SOB NOTED. NO SIGNS OF PAIN. FAMILY AT THE BEDSIDE. WILL ENDORSE TO NEXT SHIFT NURSE FOR CONTINUITY OF CARE.
--- NOTE | 2018-07-31 22:20 | NUR ---
DR. PARKER AT BEDSIDE SPEAKING WITH PATIENT.
[2018-07-31] MEDS: PROMETHAZINE 25 MG/ML VIAL IVP PRN (22:39)
--- NOTE | 2018-07-31 22:39 | NUR ---
PT C/O NAUSEA, PHENERGAN GIVEN. PT TOLERATED WELL. NO SIGNS OR SYMPTOMS OF DISTRESS. WILL CONTINUE TO MONITOR.
[2018-08-01] VITALS: BP 117/78
--- NOTE | 2018-08-01 02:11 | NUR ---
PT ASLEEP IN BED. NO SIGNS OR SYMPTOMS OF DISTRESS. WILL CONTINUE TO MONITOR.
[2018-08-01] MEDS: DEXT 5% / NACL 0.45% 1,000 ML IV SCH ×2 (02:16→13:15)
--- NOTE | 2018-08-01 02:16 | NUR ---
NEW BAG OF IVF STARTED.
--- NOTE | 2018-08-01 05:13 | NUR ---
PT ASLEEP IN BED. NO SIGNS OR SYMPTOMS OF DISTRESS. WILL CONTINUE TO MONITOR.
[2018-08-01] MEDS: LORazepam 2 MG/ML VIAL IVP PRN (06:33)
[2018-08-01] MEDS: PROMETHAZINE 25 MG/ML VIAL IVP PRN (06:33)
--- NOTE | 2018-08-01 06:34 | NUR ---
PT C/O ANXIETY AND NAUSEA, ATIVAN AND PROMETHAZINE GIVEN. PT TOLERATED WELL. NO SIGNS OR SYMPTOMS OF DISTRESS. WILL CONTINUE TO MONITOR.
[2018-08-01 07:07] LABS: BASOPHILS # (AUTO) 0.1 K/uL (0.00-0.22); BASOPHILS % (AUTO) 0.7 % (0.0-2.0); EOSINOPHILS # (AUTO) 0.4 K/uL (0-0.4); EOSINOPHILS % (AUTO) 4.6 % (0.0-4.0); HEMATOCRIT 33.5 % (36-48); HEMOGLOBIN 10.9 g/dL (12.0-16.0); LYMPHOCYTES # (AUTO) 2.7 K/uL (2.5-16.5); LYMPHOCYTES % (AUTO) 30.8 % (20.5-51.1); MEAN CORPUSCULAR HEMOGLOBIN 27 pg (27-31); MEAN CORPUSCULAR HGB CONC 33 g/dL (33-37); MEAN CORPUSCULAR VOLUME 84.1 fL (80-94); MONOCYTES # (AUTO) 0.9 K/uL (0.8-1.0); MONOCYTES % (AUTO) 10.5 % (1.7-9.3); NEUTROPHILS # (AUTO) 4.8 K/uL (1.8-7.7); NEUTROPHILS % (AUTO) 53.4 % (42.2-75.2); PLATELET COUNT (AUTO) 250 K/uL (140-450); RED BLOOD CELL COUNT(AUTO) 3.98 MIL/uL (4.20-5.40); RED CELL DISTRIBUTION WIDTH 14.1 % (11.6-13.7); WHITE BLOOD COUNT (AUTO) 8.9 K/uL (4.5-11.0)
--- NOTE | 2018-08-01 07:28 | NUR ---
REPORT GIVEN TO AM NURSE AT BEDSIDE. PT IN STABLE CONDITION.
--- NOTE | 2018-08-01 07:33 | NUR ---
RECEIVED PT FROM DOOR ATTENDANT NURSEMIKA, PT IS ASLEEP AND RESPIRATION EVEN, NO SOB NOTED, PT HAS AN IV LINE ON THE RT AC G. 22 WITH D5 1/2 NS INFUSING AT 80ML/HR. SIDE RAILS UP AND ALL LIGHT WITHIN REACH. NO SIGN OF DISTRESS NOTED AND WILL CONTINUE TO MONITOR PT.
--- NOTE | 2018-08-01 07:45 | NUR ---
PT IS AWAKE AND VITAL SIGNS TAKEN AND IS WITHIN NORMAL LIMIT. PT VERBALIZED A PAIN RATE OF 7/10. PT VOMITED AND WILL MEDICATE. WILL MONITOR PT.
[2018-08-01 08:00] VITALS: BP 136/94
[2018-08-01] MEDS: ONDANSETRON 4 MG/2 ML VIAL IVP PRN (08:42)
--- NOTE | 2018-08-01 08:48 | NUR ---
PT IS AWAKE AND LYING ON THE BED, VERBALIZED A PAIN RATE OF 7/10 AND FEELING OF NAUSEA, MEDICATIONS GIVEN TO PT AND TOLERATED IT. NO OTHER UNTOWARD SYMPTOM NOTED. WILL CONTINUE TO MONITOR PT.
[2018-08-01] MEDS: KETOROLAC 15 MG/ML VIAL IVP PRN ×2 (10:27→16:51)
[2018-08-01] MEDS: METOCLOPRAMIDE 10 MG/10 ML SYRP UDC GT SCH ×2 (12:23→16:50)
[2018-08-01 16:00] VITALS: BP 117/72
--- NOTE | 2018-08-01 16:51 | NUR ---
PT VERBALIZED A PAIN RATE OF 8/10 AND MEDICATION WAS GIVEN, VITAL SIGNS CHECKED PRIOR TO MEDICATION ADMINISTRATION. NO SIGN OF DISTRESS NOTED AND WILL MONITOR PT.
--- NOTE | 2018-08-01 19:44 | NUR ---
ENDORSED PT TO MAINFRAME SYSTEMS ENGINEER NURSEMIKA FOR CONTINUITY OF CARE. PT IS STABLE AT THIS TIME
--- NOTE | 2018-08-01 19:44 | NUR ---
RECEIVED REPORT FROM DAY SHIFT NURSE, NATALIA, AT PT BEDSIDE. PT IS ASLEEP BUT EASILY AROUSABLE. PT IS ON RA WITH RESPIRATIONS EVEN AND UNLABORED. IV ACCESS IN R AC 22G WITH IVF RUNNING PER MD ORDERS. IV IS PATENT AND INTACT. PT SKIN IS INTACT. NO C/O PAIN AT THIS TIME. BED IS LOCKED, LOW POSITION WITH SIDE RAILS UP X2. CALL LIGHT IS WITHIN REACH. WILL CONTINUE TO MONITOR.
[2018-08-02] VITALS: BP 112/78
--- NOTE | 2018-08-02 00:01 | NUR ---
PT ASLEEP IN BED. NO SIGNS OR SYMPTOMS OF DISTRESS. WILL CONTINUE TO MONITOR.
[2018-08-02] MEDS: KETOROLAC 15 MG/ML VIAL IVP PRN ×4 (02:58→21:36)
--- NOTE | 2018-08-02 02:58 | NUR ---
PT C/O PAIN. TORADOL GIVEN. PT TOLERATED WELL. NO SIGNS OR SYMPTOMS OF DISTRESS. ALL OTHER NEEDS ARE MET AT THIS TIME. WILL CONTINUE TO MONITOR.
[2018-08-02] MEDS: DEXT 5% / NACL 0.45% 1,000 ML IV SCH ×2 (03:02→05:00)
[2018-08-02] MEDS: PROMETHAZINE 25 MG/ML VIAL IVP PRN ×3 (05:00→21:05)
--- NOTE | 2018-08-02 05:01 | NUR ---
PT C/O NAUSEA, PHENERGAN GIVEN. NEW BAG OF IVF STARTED. PT TOLERATED WELL. NO SIGNS OR SYMPTOMS OF DISTRESS. WILL CONTINUE TO MONITOR.
--- NOTE | 2018-08-02 05:34 | NUR ---
DR. TAMAR JO.
--- NOTE | 2018-08-02 05:47 | NUR ---
SPOKE WITH DR. BOYLE, ORDERS RECEIVED FOR PT TO TAKE SHOWER.
--- NOTE | 2018-08-02 06:08 | NUR ---
PT TAKING SHOWER AT THIS TIME.
--- NOTE | 2018-08-02 06:35 | NUR ---
PT OUT OF SHOWER AND BACK IN BED.
[2018-08-02] MEDS: METOCLOPRAMIDE 10 MG/10 ML SYRP UDC GT SCH ×3 (06:41→16:38)
--- NOTE | 2018-08-02 06:41 | NUR ---
ADMINISTERED SCHEDULED MEDICATION. PT TOLERATED WELL. NO SIGNS OR SYMPTOMS OF DISTRESS. WILL CONTINUE TO MONITOR.
[2018-08-02 07:19] LABS: BASOPHILS % (AUTO) 0.2 % (0.0-2.0); EOSINOPHILS # (AUTO) 0.2 K/uL (0-0.4); EOSINOPHILS % (AUTO) 1.3 % (0.0-4.0); HEMATOCRIT 37.1 % (36-48); HEMOGLOBIN 11.9 g/dL (12.0-16.0); LYMPHOCYTES # (AUTO) 2.1 K/uL (2.5-16.5); MEAN CORPUSCULAR HEMOGLOBIN 27 pg (27-31); MEAN CORPUSCULAR HGB CONC 32 g/dL (33-37); MEAN CORPUSCULAR VOLUME 83.6 fL (80-94); MONOCYTES # (AUTO) 1.1 K/uL (0.8-1.0); MONOCYTES % (AUTO) 8.4 % (1.7-9.3); NEUTROPHILS # (AUTO) 9.6 K/uL (1.8-7.7); NEUTROPHILS % (AUTO) 74.1 % (42.2-75.2); PLATELET COUNT (AUTO) 294 K/uL (140-450); RED BLOOD CELL COUNT(AUTO) 4.43 MIL/uL (4.20-5.40); RED CELL DISTRIBUTION WIDTH 13.7 % (11.6-13.7)
--- NOTE | 2018-08-02 07:23 | NUR ---
GAVE REPORT TO DAY SHIFT NURSE FOR CONTINUITY OF CARE. PT IN STABLE CONDITION.
--- NOTE | 2018-08-02 07:30 | NUR ---
REPORT RECEIVED FROM PM NURSE MIKA. PT AWAKE, ALERT ORIENTED, ABLE TO COMMUNICATE NEEDS. PT C/O ABD PAIN, RECIEVED PAIN MEDICATION BY NIGHT NURSE. OFFERED DIVERSIONAL ACTIVITIES. CALL LIGHT AND SAFETY PRECAUTIONS IN PLACE. WILL CONTINUE TO MONITOR.
[2018-08-02 08:00] VITALS: BP 126/80
--- NOTE | 2018-08-02 08:18 | NUR ---
PATIENT HAS BEEN SCREENED AND CATEGORIZED HIGH NUTRITION RISK. PATIENT WILL BE SEEN WITHIN 1-2 DAYS OF ADMISSION. 08/02/[address]
--- NOTE | 2018-08-02 11:48 | NUR ---
PT C/O PAIN, PER PT PAIN IMPROVES W AMBULATION, C/O NAUSEA, ADMINISTERED SCHEDULED MEDICATION AND PRN PER ORDER. pT FAMILY AT BEDSIDE, CALL LIGHT AND SAFETY MEASURES IN PLACE. WILL CONTINUE TO MONITOR.
--- NOTE | 2018-08-02 14:00 | NUR ---
PT RESTING IN BED. CALL LIGHT AND SAFETY MEASURES IN PLACE , PERSONAL ITEMS WITHIN REACH. WILL CONTINUE TO MONITOR.
--- NOTE | 2018-08-02 14:26 | NUR ---
08/02/18 RD INITIAL ASSESSMENT COMPLETED PLEASE REFER TO NUTRITION ASSESSMENT UNDER CARE ACTIVITY FOR ESTIMATED NUTRITIONAL NEEDS. 1. CONTINUE CLEAR DIET MEDICALLY NECESSARY 2. WHEN/IF PATIENT MEDICALLY STABLE TO ADVANCE DIET, RECOMMEND ADVANCING TO REGULAR DIET 3. DIETITIAN PROVIDED NUTRITION EDUCATION FOR VOMITING AND NAUSEA 4. RD TO FOLLOW-UP 3-5 DAYS, MODERATE RISK CATHIE QIU RD
[2018-08-02 16:00] VITALS: BP 157/80
--- NOTE | 2018-08-02 17:00 | NUR ---
PT REMAINS ALERT, ORIENTED AND ABLE TO COMMUNICATE NEEDS. PT DENIES PAIN, N/V ATH THIS TIME. NO S/S OF ACUTE DISTRESS NOTED AT THIS TIME, PERSONAL ITEMS WITHIN REACH, CALL LIGHT AND SAFETY PRECAUTIONS IN PLACE. WILL CONTINUE TO MONITOR.
[2018-08-02 18:47] LABS: ANION GAP 14.4 (8-16); CARBON DIOXIDE 26.6 mmol/L (21-32); CREATININE 0.9 mg/dL (0.6-1.3); TOTAL BILIRUBIN 0.4 mg/dL (0.0-1.0)
--- NOTE | 2018-08-02 19:20 | NUR ---
PT REMAINED ALERT ORIENTED THROUGHOUT SHIFT, ABLE TO COMMUNICATE NEEDS. PT CURRENTLY RESTING IN BED COMFORTABLY LAUGHING WITH VISITORS. PT ADVANCED TO SOFT DIET, TOLERATING WELL WITHOUT N/V. CALL LIGHT AND PERSONAL ITEMS WITHIN REACH SAFETY MEASURES IN PLACE. NO S/S OF ACUTE DISTRESS NOTED AT THIS TIME. REPORT ENDORSED TO ONCOMING NURSE ROOT.
--- NOTE | 2018-08-02 19:22 | NUR ---
RECEIVED REPORT FROM DAY SHIFT NURSE. PT SITTING IN BED TALKING TO VISITORS. AAOX4. NO C/O PAIN, NAUSEA/VOMITING AT THIS TIME. NO RESP DISTRESS NOTED. SKIN INTACT. IV TO LEFT FA #22G, PATENT AND INTACT. DISCUSSED PLAN OF CARE, PT VERBALIZED UNDERSTANDING. CALL LIGHT WITHIN REACH.
[2018-08-02 19:49] LABS: ALBUMIN 4.1 g/dL (3.4-5.0)
[2018-08-02] MEDS ORDERED: ONDA4SOL PO (20:11)
[2018-08-02] MEDS ORDERED: METO5SOL20 GT (20:11)
--- NOTE | 2018-08-02 20:40 | NUR ---
PT POTASSIUM LEVEL 3.0. PAGED DR. PARKER. DR. GALVAN END TRIMMER. WAITING FOR CALL BACK.
--- NOTE | 2018-08-02 20:45 | NUR ---
RECEIVED A CALL FROM DR. GALVAN. MADE AWARE OF K LEVEL 3.0. ORDERED K DUR 40 MEQ PO ONCE. MADE AWARE ALSO OF PT'S WANTED TO STAY FOR ONE MORE NIGHT. PER DR. GALVAN, IT'S OKAY FOR PT TO STAY TONIGHT.
[2018-08-02] MEDS ORDERED: POTASSIUM CHLORIDE 10 MEQ TABER PO ONE (21:00)
--- NOTE | 2018-08-02 21:05 | NUR ---
PT C/O NAUSEA. PHENERGAN 12.5 MG IVP GIVEN.
--- NOTE | 2018-08-02 21:36 | NUR ---
PT C/O UPPER ABDOMINAL PAIN. TORADOL 15 MG IVP GIVEN.
--- NOTE | 2018-08-02 22:23 | NUR ---
PT STILL C/O OF ABDOMINAL PAIN. PT ASKING FOR STRONGER PAIN MEDS. PAGED DR. GALVAN. AWAITING FOR CALL BACK.
--- NOTE | 2018-08-02 22:28 | NUR ---
RECEIVED A CALL FROM DR. GALVAN. PER , HE'S NOT GOING TO GIVE NARCOTICS TO PT.
--- NOTE | 2018-08-02 22:35 | NUR ---
EXPLAINED TO PT THAT MD WILL NOT GIVE HER NARCOTICS. OFFERED WARM WATER TO DRINK.
--- NOTE | 2018-08-02 23:30 | NUR ---
PT SLEEPING. RESP EVEN AND UNLABORED. IVF INFUSING WELL.
[2018-08-03] VITALS: BP 132/88
[2018-08-03] MEDS: ONDANSETRON 4 MG/2 ML VIAL IVP PRN (00:32)
--- NOTE | 2018-08-03 00:32 | NUR ---
PT C/O VOMITING. ZOFRAN 4 MG IVP GIVEN.
--- NOTE | 2018-08-03 02:40 | NUR ---
PT SLEEPING BUT EASILY AROUSABLE. . NO S/S OF RESP DISTRESS.
[2018-08-03] MEDS: DEXT 5% / NACL 0.45% 1,000 ML IV SCH (03:02)
[2018-08-03] MEDS: KETOROLAC 15 MG/ML VIAL IVP PRN (03:43)
--- NOTE | 2018-08-03 03:43 | NUR ---
PT C/O ABD PAIN. TORADOL 15 MG GIVEN. PT TOLERATED WELL.
--- NOTE | 2018-08-03 05:00 | NUR ---
PT SLEEPING. NO S/S OF PAIN OR SOB. PT KEPT WARM AND COMFORTABLE. CALL LIGHT WITHIN REACH.
[2018-08-03] MEDS: METOCLOPRAMIDE 10 MG/10 ML SYRP UDC GT SCH (06:46)
[2018-08-03 07:16] LABS: BASOPHILS % (AUTO) 0.3 % (0.0-2.0); EOSINOPHILS % (AUTO) 0.2 % (0.0-4.0); HEMATOCRIT 36.1 % (36-48); HEMOGLOBIN 11.8 g/dL (12.0-16.0); LYMPHOCYTES # (AUTO) 1.8 K/uL (2.5-16.5); LYMPHOCYTES % (AUTO) 12.9 % (20.5-51.1); MEAN CORPUSCULAR HEMOGLOBIN 27 pg (27-31); MEAN CORPUSCULAR HGB CONC 33 g/dL (33-37); MEAN CORPUSCULAR VOLUME 83.6 fL (80-94); MONOCYTES # (AUTO) 1.1 K/uL (0.8-1.0); MONOCYTES % (AUTO) 7.8 % (1.7-9.3); NEUTROPHILS # (AUTO) 10.9 K/uL (1.8-7.7); NEUTROPHILS % (AUTO) 78.8 % (42.2-75.2); PLATELET COUNT (AUTO) 297 K/uL (140-450); RED BLOOD CELL COUNT(AUTO) 4.32 MIL/uL (4.20-5.40); RED CELL DISTRIBUTION WIDTH 13.9 % (11.6-13.7); WHITE BLOOD COUNT (AUTO) 13.8 K/uL (4.5-11.0)
--- NOTE | 2018-08-03 07:25 | NUR ---
ENDORSED PT TO DAY SHIFT NURSE. PT IN STABLE CONDITION.
--- NOTE | 2018-08-03 07:26 | NUR ---
RECEIVED REPORT FROM KETTLE LOADER NURSE. PT IN STABLE CONDITION. RESPIRATIONS EVEN AND UNLABORED. IV INTACT AND PATENT. SAFETY MEASURES IN PLACE. CALL LIGHT AT BEDSIDE. BED IN LOW POSITION. WILL CONTINUE TO MONITOR.
--- NOTE | 2018-08-03 07:40 | NUR ---
PT ASSISTED TO SHOWER. PT IN STABLE CONDITION. WILL CONTINUE TO MONITOR.
[2018-08-03 07:41] LABS: ALBUMIN 3.8 g/dL (3.4-5.0); ANION GAP 12.3 (8-16); CARBON DIOXIDE 26.2 mmol/L (21-32); CREATININE 0.7 mg/dL (0.6-1.3); POTASSIUM 3.5 mmol/L (3.5-5.1); TOTAL BILIRUBIN 0.5 mg/dL (0.0-1.0)
--- NOTE | 2018-08-03 09:30 | NUR ---
PT STANDING AT BEDSIDE TALKING TO FAMILY. PT IN STABLE CONDITION. RESPIRATIONS EVEN AND UNLABORED. NO SIGN OF PAIN AT THIS TIME. WILL CONTINUE TO MONITOR.
--- NOTE | 2018-08-03 11:10 | NUR ---
GAVE DISCHARGE INSTRUCTIONS AND PHARMACY PRESCRIPTIONS. DISCHARGE PAPERWORK SIGNED AT THIS TIME. PT VERBALIZED UNDERSTANDING OF DISCHARGE INSTRUCTIONS. REMOVED IV, LUMEN INTACT. REMOVED ID BAND. PT REFUSED WHEELCHAIR. PT WALKED WITH FAMILY TO LOBBY IN STABLE CONDITION.
--- NOTE | 2018-08-04 08:24 | NUR ---
LATE ENTRY PER SILVIA OF [facility] (PCP), PATIENT IS SCHEDULED FOR OUTPATIENT FOLLOW UP APPOINTMENT ON AUGUST 09, 2018 10:00 AM AT THE CLINIC [address] [place] [id number]. PATIENT AND PATIENT'S GRANDMOTHER LISA ROBLERO WHO WAS WITH PATIENT WERE INFORMED OF PATIENT'S OUTPATIENT FOLLOW UP APPOINTMENT.
== END 2018-08-03 11:10 | disposition home or self-care (01) | DRG 54 ==
LOC: MED 09:50 → MTU 12:18
PROVIDERS: ADMIT Hospitalist; ATTEND Hospitalist
DX: G43.A0 Cyclical vomiting, in migraine, not intractable (principal); K31.84 Gastroparesis; K31.89 Other diseases of stomach and duodenum; E86.9 Volume depletion, unspecified; F32.9 Major depressive disorder, single episode, unspecified; G89.29 Other chronic pain; K21.9 Gastro-esophageal reflux disease without esophagitis; J45.909 Unspecified asthma, uncomplicated; F41.9 Anxiety disorder, unspecified; Z88.2 Allergy status to sulfonamides; Z88.8 Allergy status to other drugs, medicaments and biological substances; Y92.89 Other specified places as the place of occurrence of the external cause; T40.7X5A Adverse effect of cannabis (derivatives), initial encounter
CPT/HCPCS: 36415; 80053; 80305; 81025; 83690; 83735; 85025; 87081; 96361; 96374; 96375; 99285; J1885; J2060; J2405; J2550; J3010; J8597